=== PATIENT | female | born 1970 | race Caucasian/White ===

== ENCOUNTER 2021-02-08 15:43 | Emergency (ER) | payer BC ==
[~2021-02-08] VITALS: Ht 167.6 cm; Wt 79.4 kg
[2021-02-08 16:32] VITALS: BP 111/69
--- NOTE | 2021-02-08 21:25 | NUR ---
PATIENT LEFT WITHOUT BEING SEEN BY DR. RICARDO. NO FURTHER CARE PROVIDED FOR PATIENT.
--- NOTE | 2021-02-08 21:25 | NUR ---
PATIENT CALLED BY KARINE OAKES , NO RESPONSE
--- NOTE | 2021-02-08 21:30 | NUR ---
CALLED FOR SECOND TIME , NO RESPONSE
--- NOTE | 2021-02-08 21:39 | NUR ---
CALLED FOR THE THIRD TIME , NO RESPONSE
== END 2021-02-08 21:25 | disposition left against medical advice (07) ==
LOC: MED 15:43
DX: R51.9 Headache, unspecified (principal); Z53.21 Procedure and treatment not carried out due to patient leaving prior to being seen by health care provider